=== PATIENT | female | born 1945 | race African-American/Black ===

== ENCOUNTER → 2016-04-15 | Outpatient (CLI) | payer OTHER ==
[~2016-04-15] MED LIST: ADULT LOW DOSE81 M1 PO; ALLEGRA180 MG PO; APRESOLINE25 MG PO; ASPIR-LOW81 MG PO; CATAPRES0.2 MG PO; CLONIDINE HCL0.2 MG PO; CRESTOR10 MG PO; Colace PO; DAILY VALUE1 EACH PO; EXFORGE 5/321 TABLET PO; Ecotrin PO; HYDRALAZINE HCL25 MG PO; IMDUR60 MG PO; ISOSORBIDE DINI30 MG PO; LEVAQUIN500 MG PO; LOSARTAN POTAS100 MG PO; MOBIC7.5 MG PO; MULTI-DAY VITA1 EACH PO; Mevacor PO; NORVASC10 MG PO; NORVASC5 MG PO; PLAVIX75 MG PO; PRAVASTATIN SOD40 MG PO; TRAMADOL HCL50 MG PO; TYLENOL EXTRA500 MG PO; VENTOLIN HFA18 GM IH
== END | disposition home or self-care (01) ==
LOC: NUC 06:24
DX: R06.02 Shortness of breath (principal); I25.10 Atherosclerotic heart disease of native coronary artery without angina pectoris; I25.2 Old myocardial infarction
CPT/HCPCS: 78452; 93017; A9500; J2785

== ENCOUNTER 2017-03-04 06:38 | Observation (INO) | payer BC, OTHER ==
[~2017-03-04] VITALS: Ht 157.5 cm; Wt 90.0 kg
[2017-03-04 09:23] LABS: HEMATOCRIT 37.6 % (36.0-46.0); MCH 30.6 PG (29.0-34.0); MCHC 32.4 G/DL (30.0-36.0); MCV 94.2 FL (83-99); MEAN PLAT.VOLUME 10.7 uM^3 (9.5-12.4); PLATELET COUNT 199 K/uL (156-360); RBC DIS.WIDTH-CV 11.3 % (11.8-14.6); RBC DIS.WIDTH-SD 38.7 % (39-53); RED BLOOD COUNT 3.99 M/uL (3.80-5.20); WHITE BLOOD COUNT 4.3 K/uL (4.1-10.2)
[2017-03-04 09:35] LABS: CHLORIDE 107 mEq/L (99-109); POTASSIUM 3.6 mEq/L (3.7-5.4); SODIUM 138 mEq/L (136-147)
[2017-03-04 09:36] LABS: GLUCOSE 108 mg/dL (70-99)
[2017-03-04 09:38] LABS: ANION GAP 5 MEQ/L (2-14)
[2017-03-04 09:40] LABS: GFR ESTIMATE (CALCULATED) > 59 mL/min/
[2017-03-04 09:41] LABS: UREA NITROGEN (BUN) 9 mg/dL (9-23)
[2017-03-04 09:44] LABS: TROP-I INTERPRETATION NEGATIVE; TROPONIN-I 0.07 ng/mL (0.0-0.30)
[2017-03-04] MEDS ORDERED: HYDROCHLOROTHIA25 MG PO (11:57)
[2017-03-04] MEDS ORDERED: PRAVASTATIN SOD80 MG PO (12:51)
[2017-03-04] MEDS ORDERED: NORVASC5 MG PO (12:54)
[2017-03-04] MEDS ORDERED: ISOSORBIDE DINI30 MG PO (12:57)
[2017-03-04 15:28] VITALS: BP 193/81
[2017-03-04 15:31] VITALS: BP 165/76
[2017-03-04 16:43] LABS: TROP-I INTERPRETATION NEGATIVE; TROPONIN-I 0.08 ng/mL (0.0-0.30)
[2017-03-04 21:22] LABS: TROP-I INTERPRETATION NEGATIVE; TROPONIN-I 0.08 ng/mL (0.0-0.30)
[2017-03-05] VITALS (10 sets, daily range): BP systolic 93–196; BP diastolic 50–85
[2017-03-06 04:16] VITALS: BP 135/64
[2017-03-06 09:27] VITALS: BP 180/74
[2017-03-06] MEDS ORDERED: CLONIDINE HCL0.1 MG PO ×2 (09:54→14:22)
[2017-03-06] MEDS ORDERED: APRESOLINE50 MG PO ×2 (09:54→14:22)
[2017-03-06] MEDS ORDERED: AMLODIPINE BESY10 MG PO ×2 (09:54→14:22)
[2017-03-06 13:29] VITALS: BP 119/58
== END 2017-03-06 15:05 | disposition home or self-care (01) ==
LOC: EME 06:38 → EDOF 11:21 → ENRESERV 11:29 → 5WEST 15:23 → ENPENDDIS 03-06 10:12 → 5WEST 03-06 15:05
PROVIDERS: Emergency Medicine; Internal Medicine
DX: R00.1 Bradycardia, unspecified (principal); I11.9 Hypertensive heart disease without heart failure; G44.1 Vascular headache, not elsewhere classified; I25.10 Atherosclerotic heart disease of native coronary artery without angina pectoris; Z95.5 Presence of coronary angioplasty implant and graft; M79.0 Rheumatism, unspecified; R94.31 Abnormal electrocardiogram [ECG] [EKG]; I25.2 Old myocardial infarction; E78.5 Hyperlipidemia, unspecified; E03.9 Hypothyroidism, unspecified; E66.9 Obesity, unspecified; Z87.891 Personal history of nicotine dependence; Z88.8 Allergy status to other drugs, medicaments and biological substances
CPT/HCPCS: 70450; 80048; 84484; 85027; 93005; 99281; 99285; G0378; J1650